=== PATIENT | female | born 1935 | race Caucasian/White ===

== ENCOUNTER → 2017-01-14 | Outpatient (CLI) | payer MEDICARE, MEDICAID ==
[2017-01-14 12:51] LABS: BLOOD UREA NITROGEN 24 mg/dL (7-18)
== END | disposition home or self-care (01) ==
LOC: CFH 11:08
PROVIDERS: ATTEND Internal Medicine Cardiovascular Disease
DX: I48.92 Unspecified atrial flutter (principal); R60.9 Edema, unspecified
CPT/HCPCS: 36415; 80048

== ENCOUNTER 2017-03-13 06:34 | Day surgery (SDC) | payer MEDICARE, MEDICAID ==
[2017-03-11 10:27] VITALS: BP 119/63
[2017-03-11 11:00] LABS: HEMATOCRIT 39.4 % (34.6-47.8)
[2017-03-11 11:12] LABS: BLOOD UREA NITROGEN 13 mg/dL (7-18)
[2017-03-11 11:15] LABS: ASPARTATE AMINO TRANSFERASE 25 U/L (15-37)
[~2017-03-13] VITALS: Ht 167.6 cm; Wt 79.1 kg
[~2017-03-13 06:34] MED LIST: ACET1TAB64 PO; ALPR0.25 PO; APIX5TAB PO; ATOR10TA9 PO; CITA10TA4 PO; DICL75TA2 PO; LISI5TAB7 PO
[2017-03-13] MEDS ORDERED: SODIUM CHLORIDE 0.9% 1,000 ML IV SCH (06:49)
[2017-03-13] MEDS ORDERED: FURO20TA3 PO (07:02)
[2017-03-13] MEDS ORDERED: FENTANYL PF 100 MCG/2ML ONE ×2 (07:52→09:11)
[2017-03-13] MEDS ORDERED: LIDOCAINE 2%, 20ML ONE (07:52)
[2017-03-13] MEDS ORDERED: MIDAZOLAM 1 MG/ML, 5ML ONE ×2 (07:52→09:11)
[2017-03-13] MEDS ORDERED: ISOPROTERENOL 0.2MG/ML, 5ML ONE (07:57)
[2017-03-13] MEDS ORDERED: ACETAMINOPHEN 325 MG TABLET PO PRN (10:00)
[2017-03-13] MEDS ORDERED: FUROSEMIDE 20 MG TABLET PO PRN (10:00)
[2017-03-13] MEDS ORDERED: APAP/CODEINE 300/30MG TABLET PO PRN (10:00)
[2017-03-13] MEDS ORDERED: LISINOPRIL 5 MG TABLET PO SCH (21:00)
[2017-03-13] MEDS ORDERED: DICLOFENAC SODIUM 75 MG TABLET.DR PO SCH (21:00)
[2017-03-13] MEDS ORDERED: ATORVASTATIN 10 MG TABLET PO SCH (21:00)
[2017-03-13] MEDS ORDERED: APIXABAN 5 MG TABLET PO SCH (21:00)
[2017-03-14] MEDS ORDERED: CITALOPRAM 10 MG TABLET PO SCH (09:00)
== END 2017-03-13 14:17 ==
LOC: CACL 06:34
PROVIDERS: ATTEND Internal Medicine Cardiovascular Disease
DX: I48.92 Unspecified atrial flutter (principal); I10 Essential (primary) hypertension; E11.9 Type 2 diabetes mellitus without complications
CPT/HCPCS: 36415; 71020; 80053; 85025; 85610; 93613; 93621; 93653; 99156; 99157; C1730; C1731; C1766; C1894; C2630; J2250; J3010; J3490

== ENCOUNTER → 2017-05-15 | Outpatient (CLI) | payer MEDICARE, MEDICAID ==
[~2017-05-15] MED LIST changes: +FURO20TA3 PO
== END | disposition home or self-care (01) ==
LOC: CFH 09:18
PROVIDERS: ATTEND Nurse Practitioner Family
DX: Z13.820 Encounter for screening for osteoporosis (principal); Z78.0 Asymptomatic menopausal state
CPT/HCPCS: 77080

== ENCOUNTER 2017-07-08 08:41 | Inpatient (IN) | payer MEDICARE, MEDICAID ==
[2017-07-05 14:18] LABS: BASOPHILS # (AUTO) 0.02 x10^3/uL (0-0.1); BASOPHILS % (AUTO) 0 % (0-1); EOSINOPHILS # (AUTO) 0.25 x10^3/uL (0-0.4); EOSINOPHILS % (AUTO) 3 % (1-7); LYMPHOCYTES # (AUTO) 1.86 x10^3/uL (1-3.4); LYMPHOCYTES % (AUTO) 24 % (22-44); MD NO; MEAN CORPUSCULAR HEMOGLOBIN 26.6 pg (27.0-34.8); MEAN CORPUSCULAR HGB CONC 31.5 g/dL (32.4-35.8); MEAN CORPUSCULAR VOLUME 84.4 fL (80-100); MONOCYTES # (AUTO) 0.63 x10^3/uL (0.2-0.8); MONOCYTES % (AUTO) 8 % (2-9); NEUTROPHILS # (AUTO) 4.97 x10^3/uL (1.8-6.8); NEUTROPHILS % (AUTO) 64 % (42-75); PLATELET COUNT 212 x10^3/uL (130-400); RED BLOOD COUNT 4.91 x10^6/uL (3.82-5.3); RED CELL DISTRIBUTION WIDTH 16.2 % (9.6-15.2)
[2017-07-05 14:23] LABS: MICROSCOPIC AUTO
[2017-07-05 14:27] LABS: CULTURE INDICATED? YES
[2017-07-05 14:30] LABS: ANION GAP 8 mmol/L (5-15); CALCIUM 9.1 mg/dL (8.5-10.1); CHLORIDE 102 mmol/L (98-107)
[2017-07-05 14:34] LABS: ALANINE AMINOTRANSFERASE 17 U/L (12-78); ALKALINE PHOSPHATASE 94 U/L (45-117); BILIRUBIN,TOTAL 0.6 mg/dL (0.2-1.0); CREATININE 0.75 mg/dL (0.55-1.02); TOTAL PROTEIN 7.7 g/dL (6.4-8.2)
[~2017-07-08] VITALS: Ht 170.2 cm; Wt 81.4 kg
[~2017-07-08 08:41] MED LIST changes: +ACET325T14 PO; +EPINEPHRINE 1 MG/ML, 1ML ONE; +KETOROLAC 60 MG/2 ML ONE; +ROPIvacaine/PF 0.2% , 100 ML ONE; +SODIUM CHLORIDE 0.9% 100 ML ONE; +TRANEXAMIC ACID 100 MG/ML, 10ML ONE
[2017-07-08] MEDS ORDERED: LACTATED RINGERS 1,000 ML IV SCH (09:12)
[2017-07-08 09:13] VITALS: BP 123/76
[2017-07-08] MEDS ORDERED: MIDAZOLAM 1 MG/ML, 2ML ONE (10:51)
[2017-07-08] MEDS ORDERED: FENTANYL PF 100 MCG/2ML ONE ×3 (10:51→13:52)
[2017-07-08] MEDS ORDERED: LABETALOL 5MG/ML 40ML VIAL ONE (11:46)
[2017-07-08] MEDS ORDERED: HYDROmorphone 2 MG/ML, 1ML ONE (12:34)
[2017-07-08] MEDS ORDERED: PROPOFOL 10 MG/ML, 20ML ONE (12:40)
[2017-07-08] MEDS ORDERED: ONDANSETRON 2MG/ML, 2ML ONE (12:40)
[2017-07-08] MEDS ORDERED: DEXAMETHASONE 4 MG/ML, 1ML ONE (12:40)
[2017-07-08] MEDS ORDERED: CEFAZOLIN 1,000 MG ONE (12:40)
[2017-07-08] MEDS ORDERED: HYDROmorphone 1 MG/ML, 1ML IV PRN ×2 (13:00→14:00)
[2017-07-08] MEDS ORDERED: EPHEDRINE 50 MG/ML, 1ML IVPush PRN (13:00)
[2017-07-08] MEDS ORDERED: hydrALAzine 20 MG/ML, 1ML IV PRN (13:00)
[2017-07-08] MEDS ORDERED: ACETAMINOPHEN 325 MG TABLET PO PRN (13:00)
[2017-07-08] MEDS ORDERED: PROMETHAZINE 12.5 MG SUPP PR PRN ×2 (13:00→14:00)
[2017-07-08] MEDS ORDERED: ONDANSETRON 2MG/ML, 2ML IVPush PRN (13:00)
[2017-07-08] MEDS ORDERED: MIDAZOLAM 1 MG/ML, 2ML IV PRN (13:00)
[2017-07-08] MEDS ORDERED: METOPROLOL 1 MG/ML, 5ML IV PRN (13:00)
[2017-07-08] MEDS ORDERED: DIAZEPAM 5 MG/ML, 2ML IVPush PRN (13:00)
[2017-07-08] MEDS ORDERED: FENTANYL PF 100 MCG/2ML IV PRN (13:00)
[2017-07-08] MEDS ORDERED: ALBUTEROL SULFATE 2.5 MG/3 ML NPPB PRN (13:00)
[2017-07-08] MEDS ORDERED: OXYcodone 5 MG/5 ML ORAL.SOL UDC PO PRN (13:00)
[2017-07-08] MEDS ORDERED: MEPERIDINE/PF 25MG/0.5ML IVPush PRN (13:00)
[2017-07-08] MEDS ORDERED: HYDROcodone/APAP 7.5-325MG/15ML UDC PO PRN (13:00)
[2017-07-08] MEDS ORDERED: BUPIVACAINE/PF 0.25% ONE (13:03)
[2017-07-08] MEDS ORDERED: LIDOCAINE-MPF 2% ,5ML ONE (13:04)
[2017-07-08] MEDS ORDERED: OXYcodone 5 MG/5 ML ORAL.SOL UDC ONE (13:52)
[2017-07-08] MEDS ORDERED: ACETAMINOPHEN 650 MG/20.3 ML UDC ONE (13:52)
[2017-07-08] MEDS ORDERED: ZOLPIDEM 5MG TABLET PO PRN (14:00)
[2017-07-08] MEDS ORDERED: SENNA/DOCUSATE TABLET PO PRN (14:00)
[2017-07-08] MEDS ORDERED: FUROSEMIDE 20 MG TABLET PO PRN (14:00)
[2017-07-08] MEDS ORDERED: PROMETHAZINE 25 MG/ML, 1ML IM PRN (14:00)
[2017-07-08] MEDS ORDERED: HYDROcodone/APAP 10/325 MG TABLET PO PRN (14:00)
[2017-07-08] MEDS ORDERED: DIAZEPAM 5 MG TABLET PO PRN (14:00)
[2017-07-08] MEDS ORDERED: ALUMINUM/MAG/SIMETHICONE 30 ML UDC PO PRN (14:00)
[2017-07-08] MEDS: ACETAMINOPHEN 650 MG/20.3 ML UDC PO SCH ×2 (14:00→22:00)
[2017-07-08] MEDS ORDERED: ONDANSETRON 4 MG TABLET PO PRN (14:00)
[2017-07-08] MEDS ORDERED: ONDANSETRON 2MG/ML, 2ML IV PRN (14:00)
[2017-07-08] MEDS ORDERED: MAGNESIUM HYDROXIDE 8%, 30ML UDC PO PRN (14:00)
[2017-07-08] MEDS: OXYcodone IR 5MG TABLET PO SCH ×3 (14:00→22:00)
[2017-07-08] MEDS ORDERED: BISACODYL 10 MG SUPP PR PRN (14:00)
[2017-07-08] MEDS ORDERED: TRANEXAMIC ACID 1,000 MG in SODIUM CHLORIDE 0.9% 100 ML IVPB ONE (14:00)
[2017-07-08] MEDS ORDERED: DIPHENHYDRAMINE 50 MG CAPSULE PO PRN (14:00)
[2017-07-08] MEDS ORDERED: OXYcodone IR 5MG TABLET PO PRN (14:00)
[2017-07-08] MEDS ORDERED: LABETALOL 5MG/ML, 20ML ONE (14:45)
[2017-07-08] MEDS: LABETALOL 5MG/ML, 20ML IV PRN ×2 (14:46→14:56)
[2017-07-08] MEDS: ELIQUIS MC SCH ×2 (16:00→21:57)
[2017-07-08] MEDS: ASPIRIN 81 MG TABLET EC PO SCH (17:32)
[2017-07-08] MEDS: D5%-0.45% NACL 1,000 ML IV SCH (17:33)
[2017-07-08] MEDS ORDERED: CEFAZOLIN PMX 2GM/50ML 50 ML IVPB SCH (19:00)
[2017-07-08] MEDS: DOCUSATE 100 MG CAPSULE PO SCH (20:18)
[2017-07-08] MEDS: CEFAZOLIN PMX 2GM/50ML 50 ML IVPB SCH (20:18)
[2017-07-08] MEDS: ATORVASTATIN 10 MG TABLET PO SCH (20:18)
[2017-07-08] MEDS: LISINOPRIL 5 MG TABLET PO SCH (20:18)
[2017-07-08 20:19] VITALS: BP 145/70
[2017-07-09 00:09] VITALS: BP 99/40
[2017-07-09] MEDS: D5%-0.45% NACL 1,000 ML IV SCH ×4 (01:00→22:40)
[2017-07-09] MEDS: OXYcodone IR 5MG TABLET PO SCH ×6 (02:00→22:00)
[2017-07-09 02:45] VITALS: BP 103/48
[2017-07-09] MEDS: APIXABAN 5 MG TABLET PO SCH ×2 (04:10→09:00)
[2017-07-09] MEDS: CEFAZOLIN PMX 2GM/50ML 50 ML IVPB SCH (04:40)
[2017-07-09] MEDS ORDERED: DEXAMETHASONE 4 MG/ML, 1ML IVPush SCH (06:00)
[2017-07-09] MEDS: ACETAMINOPHEN 650 MG/20.3 ML UDC PO SCH ×3 (06:31→22:00)
[2017-07-09] MEDS: ASPIRIN 81 MG TABLET EC PO SCH ×2 (06:31→18:03)
[2017-07-09] MEDS: ELIQUIS MC SCH ×2 (07:49→16:02)
[2017-07-09] MEDS: LISINOPRIL 5 MG TABLET PO SCH ×3 (08:09→19:50)
[2017-07-09] MEDS: DOCUSATE 100 MG CAPSULE PO SCH ×2 (08:09→19:48)
[2017-07-09] MEDS: MULTIVITAMINS/MINERALS TABLET PO SCH (08:09)
[2017-07-09] MEDS: CITALOPRAM 10 MG TABLET PO SCH (08:09)
[2017-07-09 08:25] VITALS: BP 119/57
[2017-07-09] MEDS: KETOROLAC 30 MG/1 ML IV SCH ×3 (14:03→22:13)
[2017-07-09 14:12] VITALS: BP 119/66
[2017-07-09 19:44] VITALS: BP 99/54
[2017-07-09] MEDS: ATORVASTATIN 10 MG TABLET PO SCH (19:49)
[2017-07-09] MEDS ORDERED: ACETAMINOPHEN 325 MG TABLET ONE (22:09)
[2017-07-10] MEDS: OXYcodone IR 5MG TABLET PO SCH ×4 (02:00→14:13)
[2017-07-10 02:45] VITALS: BP 127/61
[2017-07-10] MEDS: D5%-0.45% NACL 1,000 ML IV SCH ×2 (05:20→11:42)
[2017-07-10] MEDS: KETOROLAC 30 MG/1 ML IV SCH ×2 (05:49→13:57)
[2017-07-10] MEDS: ACETAMINOPHEN 650 MG/20.3 ML UDC PO SCH ×2 (06:00→14:13)
[2017-07-10] MEDS ORDERED: ACETAMINOPHEN 325 MG TABLET ONE (06:00)
[2017-07-10] MEDS: ASPIRIN 81 MG TABLET EC PO SCH (06:14)
[2017-07-10 07:28] VITALS: BP 104/50
[2017-07-10] MEDS: MULTIVITAMINS/MINERALS TABLET PO SCH (09:00)
[2017-07-10] MEDS: ELIQUIS MC SCH ×3 (09:01→15:47)
[2017-07-10] MEDS: APIXABAN 5 MG TABLET PO SCH (09:01)
[2017-07-10] MEDS: LISINOPRIL 5 MG TABLET PO SCH (09:01)
[2017-07-10] MEDS: CITALOPRAM 10 MG TABLET PO SCH (09:01)
[2017-07-10] MEDS: DOCUSATE 100 MG CAPSULE PO SCH (09:01)
[2017-07-10 13:23] VITALS: BP 108/57
[2017-07-10 16:08] VITALS: BP 104/60
== END 2017-07-10 16:57 | disposition home or self-care (01) | DRG 470 ==
LOC: OUT 08:41 → ORIP 13:52 → 4NOR 15:19
PROVIDERS: ADMIT Orthopaedic Surgery; ATTEND Orthopaedic Surgery
PROC: 0SRD0J9 Replacement of Left Knee Joint with Synthetic Substitute, Cemented, Open Approach (ICD-10-PCS; principal; 2017-07-08 13:15)
DX: M17.12 Unilateral primary osteoarthritis, left knee (principal); I48.91 Unspecified atrial fibrillation; E78.5 Hyperlipidemia, unspecified; I10 Essential (primary) hypertension; M21.00 Valgus deformity, not elsewhere classified, unspecified site; F32.9 Major depressive disorder, single episode, unspecified
CPT/HCPCS: 36415; 80053; 81001; 85014; 85018; 85025; 87081; 87086; 87147; 93005; C1713; J0171; J0690; J1100; J1170; J1885; J2250; J2405; J2704; J2795; J3010; J3490; C1776; J7120

== ENCOUNTER → 2020-06-02 | Outpatient (CLI) | payer MEDICARE, MEDICAID ==
[~2020-06-02] MED LIST changes: -DICL75TA2 PO; +DICL75TA3 PO; -EPINEPHRINE 1 MG/ML, 1ML ONE; -KETOROLAC 60 MG/2 ML ONE; +REGADENOSON 0.4 MG/5 ML SYRINGE ONE; -ROPIvacaine/PF 0.2% , 100 ML ONE; -SODIUM CHLORIDE 0.9% 100 ML ONE; -TRANEXAMIC ACID 100 MG/ML, 10ML ONE
== END | disposition home or self-care (01) ==
LOC: CFH 07:50
PROVIDERS: ATTEND Internal Medicine Cardiovascular Disease
DX: Z01.810 Encounter for preprocedural cardiovascular examination (principal); I48.91 Unspecified atrial fibrillation; I08.8 Other rheumatic multiple valve diseases; I27.20 Pulmonary hypertension, unspecified
CPT/HCPCS: 78452; 93017; 93306; A9502; J2785